=== PATIENT | male | born 1955 | race Caucasian/White ===

== ENCOUNTER 2019-02-12 07:34 | Inpatient (IN) ==
[2019-02-06 16:05] LABS: Appearance,Urine CLEAR; Bacteria,Urine 0 /hpf (0); Bilirubin,Urine NEG (NEG); Color,Urine YELLOW; Glucose,Urine (UA) 50 mg/dL (NEG); Ketones,Urine NEG (NEG); Leukocyte Esterase,Urine NEG /uL (NEG); Mucus,Urine FEW /hpf (0); Nitrate,Urine NEG (NEG); Protein,Urine 100 mg/dL (NEG); Specific Gravity,Urine 1.019 (1.000-1.035); Urine Blood NEG mg/dL (<0.03); Urine RBC 0 /hpf (0-1); Urine Squamous Epithelial Cell < 1 /hpf (0-4); Urine WBC 0 /hpf (0-4); Urobilinogen,Urine NEG (NEG)
[2019-02-06 17:33] LABS: Prothrombin Time 13.2 sec (11.9-14.5)
[2019-02-06 17:50] LABS: Blood Urea Nitrogen 23 mg/dl (8-23); Calcium 9.3 mg/dl (8.6-10.4); Carbon Dioxide 23 mmol/L (22-30); Chloride 101 mmol/L (96-108); Glomerular Filtration Rate 80; Glucose 250 mg/dL (70-105)
[2019-02-06 18:09] LABS: Estimated Average Glucose(eAG) 192 mg/dL; Hemoglobin A1C 8.3 % HGB (4.0-6.0)
[~2019-02-12 07:34] MED LIST: 0.9 % SODIUM CHLORIDE 9 ML, KETOROLAC 30 MG, ROPIVACAINE HCL/PF 49.5 ML, EPINEPHrine 0.... IJ SCH; CELECOXIB 200 MG CAPSULE PO SCH; GABAPENTIN 300 MG CAPSULE PO SCH; ceFAZolin 3 GM in DEXTROSE 5% IN WATER 50 ML IV SCH; oxyCODONE 10 MG TAB.ER.12H PO SCH
[2019-02-12] MEDS ORDERED: LIDOCAINE HCL/PF 100 MG/5 ML SYRINGE IV ONE (11:35)
[2019-02-12] MEDS ORDERED: PROPOFOL 200 MG/20 ML VIAL IV ONE (11:35)
[2019-02-12] MEDS ORDERED: fentaNYL 250 MCG/5 ML VIAL IV ONE (11:35)
[2019-02-12] MEDS ORDERED: ROPIVACAINE HCL/PF 20 ML VIAL IJ ONE (11:35)
[2019-02-12] MEDS ORDERED: DEXAMETHASONE 10 MG/ML VIAL IV ONE (11:35)
[2019-02-12] MEDS ORDERED: TRANEXAMIC ACID 1,000 MG/10 ML VIAL IV ONE (11:35)
[2019-02-12] MEDS ORDERED: ONDANSETRON 4 MG/2 ML VIAL IV ONE (11:35)
[2019-02-12] MEDS ORDERED: MIDAZOLAM 5 MG/5 ML VIAL IV ONE (11:35)
[2019-02-12] MEDS ORDERED: IPRATROPIUM/ALBUTEROL 3 ML AMPUL.NEB NEB PRN (12:59)
[2019-02-12] MEDS ORDERED: MEPERIDINE 25 MG/ML SYRINGE IV PRN (12:59)
[2019-02-12] MEDS ORDERED: NALOXONE HCL 0.4 MG/ML VIAL IV PRN (12:59)
[2019-02-12] MEDS ORDERED: FLUMAZENIL 0.1 MG/ML ML IV PRN (12:59)
[2019-02-12] MEDS ORDERED: ePHEDrine 50 MG/ML AMPUL IV PRN (12:59)
[2019-02-12] MEDS ORDERED: ATROPINE SULFATE 0.4 MG/ML VIAL IV PRN (12:59)
[2019-02-12] MEDS ORDERED: ACETAMINOPHEN 1,000 MG/100 ML BOTTLE IV ONE (12:59)
[2019-02-12] MEDS ORDERED: diphenhydrAMINE 50 MG/ML VIAL IV PRN (12:59)
[2019-02-12] MEDS ORDERED: fentaNYL 100 MCG/2 ML VIAL IV PRN (12:59)
[2019-02-12] MEDS ORDERED: METHOCARBAMOL 1,000 MG/10 ML VIAL IV PRN (12:59)
[2019-02-12] MEDS ORDERED: ONDANSETRON 4 MG/2 ML VIAL IV PRN ×2 (12:59→13:36)
[2019-02-12] MEDS ORDERED: METOPROLOL TARTRATE 5 MG/5 ML VIAL IV PRN (12:59)
[2019-02-12] MEDS ORDERED: LACTATED RINGERS 1,000 ML IV SCH (13:00)
[2019-02-12] MEDS ORDERED: HYDROmorphone 2 MG/ML VIAL IV PRN (13:36)
[2019-02-12] MEDS ORDERED: DEXTROSE 50% 50 ML VIAL IV PRN (13:36)
[2019-02-12] MEDS ORDERED: FLEETS ADULT ENEMA PR PRN (13:36)
[2019-02-12] MEDS ORDERED: POLYETHYLENE GLYCOL 3350 17 GM PACKET PO PRN (13:36)
[2019-02-12] MEDS ORDERED: TRANEXAMIC ACID 1,000 MG/10 ML VIAL IV SCH (13:36)
[2019-02-12] MEDS ORDERED: MAGNESIUM HYDROXIDE 30 ML ORAL.SUSP PO PRN (13:36)
[2019-02-12] MEDS ORDERED: BISACODYL 10 MG SUPP.RECT PR PRN (13:36)
[2019-02-12] MEDS ORDERED: BENZOCAINE/MENTHOL 1 LOZENGE PO PRN (13:36)
[2019-02-12] MEDS ORDERED: DEXTROSE 31 GM ORAL.SUSP PO PRN (13:36)
--- NOTE | 2019-02-12 13:36 | Brief Operative Note ---
Date of procedure: 02/12/19 Pre-op diagnosis: 1)R knee severe OA, 2)painful subQ nodule L knee Post-op diagnosis: same Procedure: 1)Right robotic assisted total knee arthroplasty 2)excision Left knee subcutaneous nodule Grafts/Implants: Yes (Alicia Triathlon CR 7 femur, 6 tibia, 11mm X3 CR insert, 39 patella) Anesthesia: spinal, GLMA Findings: severe arthritis R knee, left knee nodule Complications: none Surgeon: Juan Hamilton Leaf Sucker Operator: Kristopher Chahal Estimated blood loss (cc): 50 Specimens Removed/Pathology: other (Left knee subcutaneous nodule) Condition: stable Disposition: PACU
[2019-02-12] MEDS ORDERED: ACETAMINOPHEN 500 MG TABLET PO PRN (13:41)
[2019-02-12] MEDS ORDERED: traMADol 50 MG TABLET PO PRN (13:41)
[2019-02-12] MEDS ORDERED: BUPIVACAINE 0.5% 50 ML VIAL IJ ONE (13:42)
--- NOTE | 2019-02-12 15:17 | XRay Report ---
CLINICAL INFORMATION: Postsurgical follow-up TECHNIQUE: AP, lateral, patellar views COMPARISON: None. FINDINGS: Status post right total knee arthroplasty. Femoral, tibial component are in anatomic positions. There is postsurgical intra-articular and soft tissue gas. There are anterior skin russell IMPRESSION: Status post right total knee arthroplasty Interpreted and Authenticated by: Bakari Garza 02/12/19
[2019-02-12] MEDS: 0.9 % SODIUM CHLORIDE 1,000 ML IV SCH (15:56)
[2019-02-12] MEDS: 0.9 % SODIUM CHLORIDE 10 ML SYRINGE IV SCH ×2 (15:57→20:18)
[2019-02-12] MEDS: INSULIN REGULAR, HUMAN 1 UNIT/0.01 ML UNIT SQ SCH (17:50)
[2019-02-12] MEDS: INSULIN NPH, HUMAN 1 UNIT/0.01 ML UNIT SQ SCH (18:04)
[2019-02-12] MEDS: INSULIN LISPRO 1 UNIT/0.01 ML UNIT SQ SCH ×2 (18:05→20:22)
[2019-02-12] MEDS ORDERED: ceFAZolin 1 GM VIAL IV SCH (19:00)
[2019-02-12] MEDS: KETOROLAC 15 MG/ML VIAL IV SCH (19:13)
[2019-02-12] MEDS: ASPIRIN 325 MG ENTERIC COATED TABLET PO SCH (20:16)
[2019-02-12] MEDS: metFORMIN 500 MG TABLET PO SCH (20:17)
[2019-02-12] MEDS: DOCUSATE SODIUM 100 MG CAPSULE PO SCH (20:17)
[2019-02-12] MEDS: GABAPENTIN 300 MG CAPSULE PO SCH (20:18)
[2019-02-12] MEDS ORDERED: ceFAZolin 1 GM VIAL ONE (20:27)
[2019-02-12] MEDS: ceFAZolin 3 GM in DEXTROSE 5% IN WATER 50 ML IV SCH ×2 (20:30→20:39)
[2019-02-12] MEDS ORDERED: SENNOSIDES 1 TABLET PO SCH (21:00)
[2019-02-12] MEDS: HYDROcodone/APAP 10/325MG TABLET PO PRN (21:38)
[2019-02-13] MEDS: 0.9 % SODIUM CHLORIDE 1,000 ML IV SCH ×2 (00:05→04:19)
[2019-02-13] MEDS: KETOROLAC 15 MG/ML VIAL IV SCH ×2 (00:52→05:34)
[2019-02-13] MEDS: HYDROcodone/APAP 10/325MG TABLET PO PRN ×2 (02:22→08:51)
[2019-02-13] MEDS: ceFAZolin 3 GM in DEXTROSE 5% IN WATER 50 ML IV SCH (02:22)
[2019-02-13] MEDS ORDERED: ceFAZolin 1 GM VIAL ONE (02:23)
[2019-02-13] MEDS: 0.9 % SODIUM CHLORIDE 10 ML SYRINGE IV SCH (05:34)
[2019-02-13] MEDS: INSULIN NPH, HUMAN 1 UNIT/0.01 ML UNIT SQ SCH (07:40)
[2019-02-13] MEDS: INSULIN REGULAR, HUMAN 1 UNIT/0.01 ML UNIT SQ SCH (07:41)
[2019-02-13] MEDS: INSULIN LISPRO 1 UNIT/0.01 ML UNIT SQ SCH (07:41)
--- NOTE | 2019-02-13 07:42 | Discharge Summary ---
Providers - Providers Patient information: Note initiated : 02/13/19 at 7:37 am Service Date, if different from initiated Date: [] Patient: Bebeto Jose 63 y/o M admitted on 02/12/19 for Right Robotic Total Knee Arthroplasty with Left. Chief Complaint: [] Discharge date: 02/13/19 Hospitalization Hospital Course: Pt was admitted for a R TKA. Pt admitted on the day of procedure. Pt was transferred to the floor for IV pain meds, IV abx, and PT. Pt discharged to home with ASA for DVT prophylaxis. f/u in 2 weeks. Discharge diagnosis: R knee OA Exam - Exam Clean and dry: Yes Weight bearing status: as tolerated Ortho Discharge - TKA - Patient Instructions Diet: Regular Diet Activity: activity as tolerated Total Knee Protocol: For Total Knee: Start ROM CARLO with stationary bike or rocking chair. Work on gaining full extension of knee. Posterior dislocation precautions provided. Hip abductor strengthening and gait training instructions provided. Apply Cryocuff as instructed. Dressing Care: May shower in 2 days - Follow Up Plan Disposition: Home, Self-Care Prognosis: Good Rehab Potential: Good Overall status at discharge: patient is progressing back to baseline - Orders For Discharge Prescriptions: Aspirin [Ecotrin] 325 mg PO BID #30 tab.ec Transmission Status: Pending to [facility] HYDROcodone/APAP 10/325MG [[place] 10-325Mg] 1 - 2 tab PO Q4HP PRN #80 tab PRN Reason: Pain Level 3-6 Prescription Printed Pending Studies Resuscitation Status Full Code Diet Consistent Carbohydrate Diet Start SunFeb 12 1338 Hydrocodone Bitart/Acetaminophen ([place] 10/325mg) 0 tab PO Q4HP PRN PRN Reason: PAIN LEVEL 3-6 Last Admin: 02/13/19 02:22 Dose: 2 tab Documented by: Admin: 02/12/19 21:38 Dose: 2 tab Documented by: RASHI Aspirin (Ecotrin) 325 mg PO BID [facility] Last Admin: 02/12/19 20:16 Dose: 325 mg Documented by: RASHI Diagnostic Test (Pha) (Accu-Chek) 1 each FS ACHS [facility] Last Admin: 02/13/19 07:23 Dose: 1 each Documented by: Admin: 02/12/19 20:20 Dose: 1 each Documented by: Admin: 02/12/19 17:19 Dose: 1 each Documented by: NITHIN Docusate Sodium (Colace) 100 mg PO BID [facility] Last Admin: 02/12/19 20:17 Dose: 100 mg Documented by: RASHI Gabapentin (Neurontin) 300 mg PO BID [facility] Last Admin: 02/12/19 20:18 Dose: 300 mg Documented by: RASHI Hydromorphone HCl (Dilaudid) 0 mg IV Q2HP PRN PRN Reason: PAIN LEVEL > 6 Last Admin: 02/12/19 20:14 Dose: 2 mg Documented by: RASHI Sodium Chloride (Sodium Chloride 0.9%) 1,000 mls @ 125 mls/hr IV .Q8H [facility] Last Admin: 02/13/19 04:19 Dose: Not Given Documented by: Admin: 02/13/19 00:05 Dose: Not Given Documented by: Admin: 02/12/19 15:56 Dose: 125 mls/hr Documented by: PRETTY Insulin Human Lispro (Humalog) [address] [facility]; Protocol Last Admin: 02/12/19 20:22 Dose: 12 unit Documented by: Admin: 02/12/19 18:05 Dose: 8 unit Documented by: PRETTY Insulin Human NPH (Humalin N) 25 unit SQ BID@,17 [facility] Last Admin: 02/12/19 18:04 Dose: 25 unit Documented by: PRETTY Insulin Human Regular (Humulin R) 25 unit SQ BID@,17 [facility] Last Admin: 02/12/19 17:50 Dose: 25 units Documented by: PRETTY Ketorolac Tromethamine (Toradol) 15 mg IV Q6 [facility] Stop: 02/14/19 12:01 Last Admin: 02/13/19 05:34 Dose: 15 mg Documented by: Admin: 02/13/19 00:52 Dose: 15 mg Documented by: Admin: 02/12/19 19:13 Dose: 15 mg Documented by: RASHI Metformin HCl (Glucophage) 1,000 mg PO BID [facility] Last Admin: 02/12/19 20:17 Dose: 1,000 mg Documented by: RASHI Senna (Senokot) 2 tab PO [facility] Last Admin: 02/12/19 20:16 Dose: 2 tab Documented by: RASHI Sodium Chloride (Saline Flush) 10 ml IV Q8 [facility] Last Admin: 02/13/19 05:34 Dose: 10 ml Documented by: Admin: 02/12/19 20:18 Dose: Not Given Documented by: Admin: 02/12/19 15:57 Dose: Not Given Documented by: PRETTY Shift Summary 02/13/19 05:00 Shift Summary by Florina Woody The patient is alert and oriented times four, his remained at bedside last evening (lives in [place]). He was up out of bed to void via urinal multiple times quantity sufficient and ambulated in his room with 1 SBA and a FWW with a steady gait. He has bilateral LARRY wraps to his lower extremities, he had a removal of a mass on the left knee as well and both are CDI. He has neuropathy with no sensation to his bilateral lower extremities from his feet to mid lopez as his baseline and his block wore off at around midnight and he has scheduled Toradol. He was medicated once with IV Dilaudid and twice with [place] 10/325 and has had adequate pain management. VSS, on RA and has CPAP for history of obstructive sleep apnea, SL 18 gauge IV to his left hand and has had no nausea and taken adequate PO. He is diabetic and his last CBG was 352 at HS. Initialized on 02/13/19 05:00 - END OF NOTE
[2019-02-13] MEDS: ASPIRIN 325 MG ENTERIC COATED TABLET PO SCH (08:47)
[2019-02-13] MEDS: DOCUSATE SODIUM 100 MG CAPSULE PO SCH (08:47)
[2019-02-13] MEDS: GABAPENTIN 300 MG CAPSULE PO SCH (08:47)
[2019-02-13] MEDS: metFORMIN 500 MG TABLET PO SCH (08:47)
[2019-02-13] MEDS ORDERED: LISINOPRIL 20 MG TABLET PO SCH (09:00)
[2019-02-13] MEDS ORDERED: TAMSULOSIN 0.4 MG CAPSULE PO SCH (09:00)
--- NOTE | 2019-02-13 11:34 | Surgical Pathology Report ---
HISTOLOGY SPECIMEN MICROSCOPIC DIAGNOSIS SOFT TISSUE, LEFT KNEE NODULE, EXCISION: -- GLOMUS TUMOR. -- NO ATYPICAL OR MALIGNANT FEATURES IDENTIFIED. (ACP:sita) CLINICAL HISTORY Painful nodule left knee. GROSS DESCRIPTION Received in formalin designated left knee nodule, is a telfa containing a purple-parra piece of tissue that measures 0.8 x 0.7 x 0.6 cm with a possible 1 cm stalk. Cut surfaces are firm, parra. Bisected, entirely submitted in one cassette. (SCB:adj) Electronically Signed by: Corey Slater M.D.
--- NOTE | 2019-02-19 08:10 | Operative Note ---
DATE OF OPERATION: 02/12/2019 PREOPERATIVE DIAGNOSES: 1. Right knee severe osteoarthritis. 2. Painful subcutaneous nodule of the left knee. POSTOPERATIVE DIAGNOSES: 1. Right knee severe osteoarthritis. 2. Painful subcutaneous nodule of the left knee. PROCEDURE PERFORMED: 1. Right robotic-assisted total knee arthroplasty, placing a Alicia Triathlon cruciate retaining size 7 femur, size 6 tibia, 11 mm X3 CR insert with a 39 mm patellar button. 2. Excision of left knee subcutaneous nodule. SURGEON: Juan Hamilton M.D. CLOTH SHRINKER: Tree Chahal PA-C. The PA's assistance was required for the safe and efficient completion of the entire case. This provider's expertise and technical skill were required throughout the case. The PA assisted with preoperative coordination, intraoperative retraction, wound closure, dressing and splint application, as well as postoperative documentation and care coordination. ANESTHESIA: Spinal plus LMA general. DRAINS: None. SPECIMENS: The nodule from the left knee. BLOOD LOSS: 50 mL. COMPLICATIONS: None. POSTOPERATIVE CONDITION: Stable. INDICATIONS FOR SURGERY: This is a 63-year-old male with longstanding, progressive worsening, severe right knee pain, as well as a painful lump over his anterior left knee. FINDINGS AT SURGERY: As above. Post implantation showed good limb alignment and stability. PROCEDURE IN DETAIL: The patient had been seen preoperatively. Informed consent had been obtained after discussion of risks and benefits of surgery. Risks including, but not limited to, bleeding, possibly requiring transfusion; infection, possibly requiring implant removal and prolonged IV antibiotics; injury to nerves, blood vessels, and other surrounding structures; anesthetic risks; incomplete or no resolution of symptoms; stiffness; swelling; pain; clunking; DVT and pulmonary embolus risks; instability; possibility of needing further revision surgery. He understood these risks and wished to proceed. The patient had been seen in preoperative holding and correct site was marked, and the patient was taken to the operating room after spinal anesthesia was given. LMA general was performed and then the right lower extremity was carefully prepped and draped in normal sterile fashion. Time out was performed verifying patient name, operative site, and plan. Esmarch was used to exsanguinate the extremity and tourniquet was inflated. Ioban was used to cover all skin surfaces. Then a standard anterior incision was made with a scalpel through skin and subcutaneous tissue. Hemostasis was obtained with Bovie cautery. Irrisept was irrigated and then a medial parapatellar arthrotomy made. Subperiosteal exposure was done of the anterior medial tibia, as well as the retropatellar fat pad was excised and anterior horns of the meniscus removed. ACL was transected. Femoral and tibial checkpoints were placed, and two holes were made over the tibia and two over the femur, and bicortical pins placed and the arrays were connected. Hip center of rotation was checked. Green probe was used to identify medial and lateral malleoli and double-check our checkpoints. Blue probe was then used to do our mapping. After this was completed, we removed osteophytes. Spoons were used to check our flexion-extension gaps. Once we had these, we then adjusted our implants to get us 17 mm gaps in all four measurements. We then went through the CT to verify good patellar tracking. We then used the robotic arm to make our bone cuts. Tibia was prepared with the boss reamer and keel punch, externally rotating as bone coverage would allow. Posterior osteophytes were removed with curved osteotome and curet and then femoral trial was placed. A 9 insert trial was placed, and the knee was taken into extension. Patella was resected freehand and sized to a 39, which was medialized maximally, and then holes were drilled and trial placed. A lateral facetectomy was performed. We then checked our patellar tracking which was good. We then removed trial implants. Definitive implants were opened. We irrigated the joint with Irrisept, and after a minute we copiously pulse lavaged with saline, and then antibiotic cement had been mixed. We used the CO2 gun to clean and dry the cancellous bone surface and cemented the tibia and femur. Excess cement was removed. A 9 insert trial placed. Knee was taken into extension and the patella was cemented. We removed our checkpoints. We filled the joint with Irrisept and then injected pain cocktail in the pericapsular and subcutaneous tissues. Once cement had fully hardened, we flexed the knee up and removed any excess cement with osteotome. His stability, we felt could be improved slightly with tightening the knee. Also due to his large size, we felt extra polyethylene would be helpful as well, so we opened the 11 insert. The 9 was removed. We injected pain cocktail in the posteromedial capsule. We irrigated the tray with Irrisept and then definitive insert was impacted and carefully verified to be fully seated. We then filled the joint with Irrisept again, after a minute pulse lavaged saline. The knee was then placed in about 45 degrees of flexion. Interrupted #2 FiberWire [id number] were used around the superior quadrant of the patella, interrupted #1 Vicryl [id number] around the inferior quadrant. Running #1 Vicryl was used for patellar tendon and quad tendon. Checkpoints were verified to be removed prior to closure. We then irrigated Irrisept again, and the subcutaneous was closed with 2-0 Monocryl and then russell for skin. The pins were removed for the arrays and russell used for skin. Xeroform and sterile dressing were applied. Tourniquet was released and then the drapes were taken down. We then prepped and draped the left lower extremity in normal sterile fashion and then Esmarch was used to exsanguinate the extremity. Tourniquet was inflated. A scalpel was used to make a small incision directly overlying the subcutaneous nodule. We then carefully bluntly dissected with tenotomy scissors and identified the mass. This was shelled out as it was well circumscribed. It did have a stalk extending proximally, which we dissected up. This appeared to be a vascular supply. We cut this with cautery and then irrigated with saline and closed skin with russell. Xeroform and sterile dressing were applied. Tourniquet was released. The patient was then awakened, extubated, and transferred to recovery in stable condition. KHADIJAH:steve Job ID: [id number] Doc ID: [id number] Juan Hamilton MD
== END 2019-02-13 10:10 | disposition home or self-care (01) | DRG 464 ==
LOC: MEDSUR 07:34
PROVIDERS: ADMIT Orthopaedic Surgery; ATTEND Orthopaedic Surgery